=== PATIENT | female | born 1965 | race Caucasian/White ===

== ENCOUNTER 2021-08-25 18:14 | Emergency (ER) | payer OTHER ==
[~2021-08-25 18:14] MED LIST: PHENERGAN25 MG PR
[2021-08-25 19:34] LABS: HEMOGLOBIN 12.5 gm/dl (12.3-15.3); RED BLOOD COUNT 4.17 M/UL (4.00-5.10); WHITE BLOOD COUNT 5.8 K/UL (4.5-11.0)
[2021-08-25 19:48] LABS: BUN/CREATININE RATIO 20 (0-10)
== END 2021-08-26 01:09 | disposition home or self-care (01) ==
LOC: ER1 18:14
PROVIDERS: Physician Assistant
DX: J38.5 Laryngeal spasm (principal); K21.9 Gastro-esophageal reflux disease without esophagitis; Z86.718 Personal history of other venous thrombosis and embolism; Z20.822 Contact with and (suspected) exposure to COVID-19
CPT/HCPCS: 0240U; 70360; 71045; 80053; 82550; 82553; 83874; 83880; 84484; 85025; 87081; 87880; 93005; 94664; 94760; 96365; 96375; 99285; J2060; J2405; J2550; Q9967